=== PATIENT | male | born 2000 | race Two or more races ===

== ENCOUNTER → 2023-04-10 09:26 | Outpatient (BNVA) | payer OTHER, SELFPAY | PROVIDERS: PCP Pediatrics; Visit Provider Internal Medicine | DX: S67.193A Crushing injury of left middle finger, initial encounter (principal); S67.195A Crushing injury of left ring finger, initial encounter; W24.0XXA Contact with lifting devices, not elsewhere classified, initial encounter | CPT/HCPCS: 90715; 99203 ==

== ENCOUNTER → 2023-04-14 13:16 | Outpatient (BNVA) | payer MEDICARE, MEDICAID, SELFPAY | PROVIDERS: PCP Pediatrics; Visit Provider Internal Medicine | DX: S67.193A Crushing injury of left middle finger, initial encounter (principal); S67.195A Crushing injury of left ring finger, initial encounter; W24.0XXA Contact with lifting devices, not elsewhere classified, initial encounter | CPT/HCPCS: 99213 ==

== ENCOUNTER → 2023-04-17 10:08 | Outpatient (BNVA) | payer MEDICARE, MEDICAID, SELFPAY | PROVIDERS: PCP Pediatrics; Visit Provider Internal Medicine | DX: S67.193A Crushing injury of left middle finger, initial encounter (principal); S67.195A Crushing injury of left ring finger, initial encounter; W24.0XXA Contact with lifting devices, not elsewhere classified, initial encounter | CPT/HCPCS: 99213 ==

== ENCOUNTER 2024-03-05 20:50 | Emergency (ER) | payer MEDICARE, MEDICAID, SELFPAY ==
[2024-03-05 20:54] VITALS: BP 132/58; PULSE 99; RESP 18; TEMP 36.6; O2SAT 97; BMI 36.2
--- NOTE | 2024-03-05 22:20 | ED_ITS ---
HPI - Wound/Laceration General Chief Complaint: Wound/Laceration Stated Complaint: rt hand laceration broke glass cup Time Seen by Provider: 03/05/24 21:57 Source: patient Limitations: no limitations History of Present Illness ED Provider: Nandini Kimble PA-C HPI narrative: 24-year-old otherwise healthy male presents with right hand laceration. Patient states he slammed a glass cup onto a table, subsequently breaking it and lacerating his hand. Denies paresthesia or inability to move the fingers. Related Data Allergies Allergy/AdvReac Type Severity Reaction Status Date / Time No Known Allergies Allergy Verified 03/05/24 20:55 Review of Systems Constitutional: Constitutional: Denies fever(s) Musculoskeletal: Musculoskeletal: Denies deformity, Denies arthralgias, Denies joint swelling and Denies numbness Neurologic: Denies numbness PMFSH Past Medical History Attestation statement: The following information was validated with the patient. Social History Social History Advance Directives: No Advance Directives Information Provided: No Do you have a plan to hurt others: No Plan Physical Exam Vital Signs: Vital Signs: Last Vital Signs Temp 97.8 F 03/05/24 20:54 Pulse 99 03/05/24 20:54 Resp 18 03/05/24 20:54 BP 132/58 L 03/05/24 20:54 Pulse Ox 97 03/05/24 20:54 O2 Del Method Room Air 03/05/24 20:54 BMI result Body Mass Index 36.2 Const: Other: Alert overall well in appearance, anxious Orientation/consciousness: patient oriented x3 Resp: Effort & Inspection: normal respiratory effort Cardio: Other: Normal peripheral perfusion Skin: Other: Warm dry no rash Neuro: General: patient oriented x3, no focal motor deficits and CN's II-XI intact bilaterally Extrem: Other: 3 cm laceration on palmar aspect of righ t hand, minimally bleeding, is superficial and linear Psych: Other: Cooperative Medical Decision Making Medical Decision Making MDM Narrative: No relevant chronic issues History: Per patient I have considered the following differential diagnoses: Laceration, open f racture, foreign body Plan: X-rays obtained from triage, the laceration will require simple repair, tetanus up-to-date... Cancelling the x-ray is not warranted Procedures Laceration Laceration 1: Site: hand Side (If applicable): right Size (cm): 3 Description: linear Depth: simple, single layer Local Anesthetic: lidocaine 2% and with epi Amount of anesthesia used (mL): 5 Pre-repair: irrigated extensively Skin layer closed with: nylon Size (cm): 3-0 Number of sutures: 7 Technique: simple, interrupted Discharge Plan Discharge Clinical Impression: Laceration Patient Disposition: Home, Self-Care Additional Instructions: Seven stitches were used to repair the laceration. Keep it clean and dry, do not submerge in water such as a bath, pool or hot tub. The stitches need to be removed in 7 days. Watch for signs of infection which would include redness, swelling, pus draining from the site or fever. If you develop any of these s ymptoms, returned for medical assessment. Print Language: Peruvian
[2024-03-05 23:19] VITALS: BP 132/58; PULSE 99; RESP 18; TEMP 36.6; O2SAT 97
== END 2024-03-05 23:20 | disposition home or self-care (01) ==
PROVIDERS: Emergency Provider Emergency Medicine
DX: S61.411A Laceration without foreign body of right hand, initial encounter (principal); M79.641 Pain in right hand; W25.XXXA Contact with sharp glass, initial encounter; Y93.89 Activity, other specified; Y92.89 Other specified places as the place of occurrence of the external cause; Y99.8 Other external cause status
CPT/HCPCS: 12042; 99282; 99284